=== PATIENT | female | born 1935 | race Caucasian/White ===

== ENCOUNTER 2021-09-16 05:02 | Inpatient (IN) | payer MEDICARE, BC ==
[~2021-09-16] VITALS: Ht 167.6 cm; Wt 83.0 kg
[2021-09-16] VITALS (65 sets, daily range): BP systolic 46–175; BP diastolic 26–96
--- NOTE | 2021-09-16 05:22 | NUR ---
Note ramoneone in EDM - 09/16/21 at 0557 by HUGO 0514; NO RESPIRATIONS, NO PULSES PALPATED. INITIATED CPR; DR. IRMA DO, RN, EMT AT PT'S BEDSIDE 0515 ADMINISTERED EPI IVP 0516 ADMINISRERED SODIUM BICARB IVP 0516 PULSE FELT; ROSC ACHIEVED. 0519 - ETOMIDATE 10MG IVP ADMINISTERED 0520 - ROCURONIUM 60MG IVP ADMINISTERED - PT SEDATED 0522 PT INTUBATED ETT 7.5CM 20 CM AT THE LIP
--- NOTE | 2021-09-16 05:22 | NUR ---
0514; NO RESPIRATIONS, NO PULSES PALPATED. INITIATED CPR; DR. IRMA DO, RN, EMT AT PT'S BEDSIDE 0515 ADMINISTERED EPI IVP 0516 ADMINISRERED CALCIUM CARBONATE IVP 0516 PULSE FELT; ROSC ACHIEVED. 0519 - ETOMIDATE 10MG IVP ADMINISTERED 0520 - ROCURONIUM 60MG IVP ADMINISTERED - PT SEDATED 0522 PT INTUBATED ETT 7.5CM 20 CM AT THE LIP
--- NOTE | 2021-09-16 05:24 | NUR ---
POC BS ACCUCHECK 384; DR. AVILA DO AWARE
[2021-09-16] MEDS ORDERED: ROCURONIUM BROMIDE 100 MG/10 ML VIAL IV ONE (05:30)
[2021-09-16] MEDS ORDERED: ETOMIDATE 2 MG/ML VIAL IV ONE ×2 (05:30→14:49)
--- NOTE | 2021-09-16 05:30 | NUR ---
F/C 16FR INSERTED WITH URINE. URINE AND COVID ANTIGEN COLLECTED AND SENT TO LAB.
--- NOTE | 2021-09-16 05:32 | NUR ---
R NARE NG TUBE PLACED @55CM. PLACEMENT CONFIRMED VIA AUSCULTATION & ASPIRATION
--- NOTE | 2021-09-16 05:33 | NUR ---
NG TUBE PLACED @55CM
--- NOTE | 2021-09-16 05:33 | NUR ---
TILE CONDUIT LAYER AT PT'S BEDSIDE
--- NOTE | 2021-09-16 05:34 | NUR ---
TEXTILES SALES REPRESENTATIVE AT PT'S BEDSIDE
--- NOTE | 2021-09-16 05:37 | NUR ---
RT & DR IRMA ZACARIAS ADVANCED ETT FROM 20 TO 22 CM AT THE LIP Addendum: 09/16/21 at 0558 by HUGO RT ADVANCED ETT FROM 20CM TO 23 CM [address] THE LIP. DR. IRMA ZACARIAS AWARE.
--- NOTE | 2021-09-16 05:48 | NUR ---
VENT SETTINGS: FIO2 100% VT 500 RR 24 I:E - 1:2 PEEP 5 PMAX 60
--- NOTE | 2021-09-16 05:49 | NUR ---
RT AT PT'S BEDSIDE FOR ABG
[2021-09-16 05:53] LABS: BASOPHILS % (AUTO) 0.2 % (0.0-2.0); EOSINOPHILS % (AUTO) 0.1 % (0.0-6.0); HEMATOCRIT 35 % (33-45); HEMOGLOBIN 11.1 g/dL (11.5-14.8); LYMPHOCYTES # (AUTO) 1.2 K/uL (0.8-4.8); LYMPHOCYTES % (AUTO) 25.3 % (20.0-44.0); MEAN CORPUSCULAR HGB CONC 32 g/dl (31.0-36.0); MEAN CORPUSCULAR VOLUME 93 fL (82-100); MONOCYTES % (AUTO) 0.4 % (2.0-12.0); NEUTROPHILS # (AUTO) 3.6 K/uL (1.8-8.9); PLATELET COUNT (AUTO) 171 K/uL (150-450); RED BLOOD CELL COUNT(AUTO) 3.79 MIL/uL (4.0-5.2); WHITE BLOOD COUNT (AUTO) 4.9 K/uL (4.3-11.0)
--- NOTE | 2021-09-16 05:58 | NUR ---
RT ADVANCED ETT FROM 20 CM TO [address]IP[address]. IRMA DELGADO.
[2021-09-16 06:07] LABS: CALCIUM, SERUM 9.5 mg/dL (8.5-10.1); CARBON DIOXIDE 13 mmol/L (21-32); CHLORIDE 99 mmol/L (98-107); CREATININE 3.7 mg/dL (0.6-1.3); POTASSIUM 4.3 mmol/L (3.5-5.1); SODIUM SERUM 137 mmol/L (136-145); UREA NITROGEN, BLOOD 45 mg/dL (7-18)
[2021-09-16 06:20] LABS: ALANINE AMINOTRANSFERASE 220 U/L (12-78); ALBUMIN 3.4 g/dL (3.4-5.0); ALKALINE PHOSPHATASE 102 U/L (46-116); ASPARTATE AMINOTRANSFERASE 275 U/L (15-37); BILIRUBIN,DIRECT 0.5 mg/dL (0.0-0.2); TOTAL PROTEIN, SERUM 7.1 g/dL (6.4-8.2)
[2021-09-16] MEDS ORDERED: CEFTRIAXONE 1GM BAG (ER ONLY) 50 ML IV ONE (06:26)
[2021-09-16] MEDS ORDERED: AZITHROMYCIN 500 MG VIAL ONE (06:26)
[2021-09-16] MEDS ORDERED: ATROPINE SULFATE INJ 1 MG/ML VIAL ONE (06:26)
[2021-09-16] MEDS ORDERED: INSULIN REGULAR, HUMAN 100 UNIT/ML 10 ML VIAL ONE (06:27)
[2021-09-16] MEDS ORDERED: SODIUM BICARBONATE SYR 50 MEQ/50 ML DISP.SYRIN ONE (06:27)
[2021-09-16] MEDS ORDERED: INSULIN REGULAR, HUMAN 100 UNITS in IV NS 0.9% 100 ML IV PRN ×2 (06:30)
[2021-09-16] MEDS ORDERED: CEFTRIAXONE 1GM BAG (ER ONLY) 1 GM/50 ML PIGGYBACK IV ONE (06:30)
[2021-09-16] MEDS ORDERED: INSULIN REGULAR, HUMAN 100 UNIT/ML 10 ML VIAL IV ONE (06:30)
[2021-09-16] MEDS ORDERED: AZITHROMYCIN 500 MG in IV D5W 250 ML IV ONE (06:30)
[2021-09-16] MEDS ORDERED: IV NS 0.9% 500 ML BAG IV ONE ×2 (06:30)
[2021-09-16] MEDS ORDERED: SODIUM BICARBONATE SYR 50 MEQ/50 ML DISP.SYRIN IV ONE ×3 (06:30→14:31)
[2021-09-16] MEDS ORDERED: ATROPINE SULFATE INJ 1 MG/ML VIAL IV ONE (06:30)
[2021-09-16 06:32] LABS: ABG BASE EXCESS -16.7 mmol/L; ABG PCO2 27.4 mmHg (35.0-45.0); ABG PH 7.184 (7.350-7.450); ABG PO2 52.5 mmHg (75.0-100.0); COHb 0.3 % (0.5-1.5); MetHb 0.4 % (0.0-1.5); O2Hb 76.2 % (94.0-97.0); SITE, ABG Right Brachial
[2021-09-16 06:56] LABS: GLUCOSE 443 mg/dL (74-106)
[2021-09-16] MEDS ORDERED: HEPARIN INFUSION/D5W 500 ML IV PRN (07:00)
[2021-09-16] MEDS ORDERED: NOREPINEPHRINE 8 MG in IV NS 0.9% 250 ML IV PRN (07:00)
[2021-09-16] MEDS ORDERED: PROPOFOL 100 ML IV PRN (07:00)
[2021-09-16] MEDS ORDERED: DEXTROSE 50%-WATER 50 ML DISP.SYRIN IV PRN (07:00)
[2021-09-16] MEDS ORDERED: IV NS 0.9% 1,000 ML IV PRN (07:00)
[2021-09-16] MEDS: BLOOD SUGAR DIAGNOSTIC 1 EACH STRIP IN SCH ×18 (07:00→23:59)
--- NOTE | 2021-09-16 07:12 | NUR ---
DR. YANI CALLAHAN AT PT'S BEDSIDE FOR PICCLINE INSERTION.
--- NOTE | 2021-09-16 07:23 | NUR ---
REPORT GIVEN TO BILL DIAMOND SIZER FOR [facility]
--- NOTE | 2021-09-16 07:26 | NUR ---
UPDATED MARIA E (DAUGHTER) [phone] REGARDING PT'S ADMISSION
[2021-09-16] MEDS ORDERED: DOPamine 400 MG/D5W 250 ML RTU BAG IV ONE (07:30)
[2021-09-16] MEDS ORDERED: FUROSEMIDE 40 MG/4 ML VIAL IV ONE (07:30)
--- NOTE | 2021-09-16 07:48 | NUR ---
TRANSFERRED TO BED 257 IN STABLE CONDITION
[2021-09-16] MEDS ORDERED: VANCOMYCIN 1.25 GM in IV D5W 250 ML IV ONE (08:00)
[2021-09-16] MEDS: Sodium Bicarbonate 100 MEQ in IV NS 0.9% 1,000 ML IV SCH ×2 (08:27→18:01)
[2021-09-16] MEDS ORDERED: EPINEPHRINE (1:1000) 5 MG in IV NS 0.9% 250 ML IV PRN (08:30)
--- NOTE | 2021-09-16 09:00 | NUR ---
UNDERGROUND MINE SUPERINTENDENT NOTE PATIENT FOUND WITHOUT A PULSE AT 0753 AFTER ER TRANSFER. NO PALPABLE PULSE AND NO RHYTHM SEEN ON MONITOR. PT WITH ETT TUBE IN PLACE AND FIO2 100%, UNABLE TO GET O2 SATURATION READING. CPR INITIATED 0757 EPINEPHRINE GIVEN 0758 SODIUM BICARB GIVEN 0801 EPINEPHRINE GIVEN 0802 ROCS, SINUS YOBANY 0805 DOPAMINE DRIP INITIATED.
[2021-09-16 09:05] LABS: BASOPHILS % (AUTO) 0.2 % (0.0-2.0); EOSINOPHILS % (AUTO) 0.1 % (0.0-6.0); HEMATOCRIT 33 % (33-45); HEMOGLOBIN 10.4 g/dL (11.5-14.8); LYMPHOCYTES # (AUTO) 2.4 K/uL (0.8-4.8); MEAN CORPUSCULAR HGB CONC 31 g/dl (31.0-36.0); MEAN CORPUSCULAR VOLUME 93 fL (82-100); MONOCYTES # (AUTO) 0.2 K/uL (0.1-1.30); MONOCYTES % (AUTO) 1.2 % (2.0-12.0); NEUTROPHILS # (AUTO) 14.7 K/uL (1.8-8.9); NEUTROPHILS % (AUTO) 84.5 % (43.0-81.0); PLATELET COUNT (AUTO) 146 K/uL (150-450); RED BLOOD CELL COUNT(AUTO) 3.59 MIL/uL (4.0-5.2); WHITE BLOOD COUNT (AUTO) 17.3 K/uL (4.3-11.0)
[2021-09-16 09:08] LABS: ABG BASE EXCESS -4.7 mmol/L; ABG OXYGEN SATURATION 88.7 % (92.0-98.5); ABG PCO2 42.6 mmHg (35.0-45.0); ABG PH 7.316 (7.350-7.450); ABG PO2 68.1 mmHg (75.0-100.0); AaDO2 602.3 mmHg; COHb 0.3 % (0.5-1.5); MetHb 0.2 % (0.0-1.5); O2Hb 88.3 % (94.0-97.0); PEEP,BG 8 cm H2O; SITE, ABG Right Brachial; VT, ABG 500 mL
--- NOTE | 2021-09-16 09:10 | NUR ---
CONSTRUCTION HELPER NOTE PT WITH ONGOING DOPAMINE DRIP, LOST OF PALPABLE PULSE AND RHYTHM ON MONITOR. CPR INITIATED AT 0811. ETT IN PLACE, FIO2 100%, UNABLE TO ASSESS OXYGEN SATURATION AT THIS TIME. 08 EPINEPHRINE GIVEN 813 EPINEPHRINE GIVEN 08 ROSC ACHIEVED, SR.
--- NOTE | 2021-09-16 09:15 | NUR ---
PHYSICIAN PRESIDENT NOTE PT FOUND WITHOUT PALPABLE PULSE, NO RHYTHM ON MONITOR. ETT IN PLACE FIO2 100%. CPR INITIATED AT 0831 BY RN. ONGOING DOPAMINE DRIP, ONGOING SODIUM BICARB DRIP. 0832 EPINEPHRINE GIVEN. 0835 SODIUM BICARB GIVEN 0838 ROSC, SINUS YOBANY.
[2021-09-16 09:24] LABS: CALCIUM, SERUM 8.4 mg/dL (8.5-10.1); CARBON DIOXIDE 16 mmol/L (21-32); CHLORIDE 102 mmol/L (98-107); CREATININE 4.1 mg/dL (0.6-1.3); POTASSIUM 3.2 mmol/L (3.5-5.1); SODIUM SERUM 145 mmol/L (136-145); UREA NITROGEN, BLOOD 46 mg/dL (7-18)
[2021-09-16 09:31] LABS: GLUCOSE 413 mg/dL (74-106)
[2021-09-16] MEDS: EPINEPHRINE (1:1000) 10 MG in IV NS 0.9% 240 ML IV PRN ×4 (09:40→22:46)
[2021-09-16] MEDS ORDERED: EPINEPHRINE (1:10,000) SYRINGE 1 MG/10 ML DISP.SYRIN IVP ONE ×2 (09:56→14:31)
[2021-09-16] MEDS: CEFEPIME 1 GM in IV D5W 50 ML IV SCH (10:07)
[2021-09-16] MEDS: PANTOPRAZOLE 40 MG VIAL IV SCH (10:07)
[2021-09-16] MEDS: INSULIN REGULAR, HUMAN 100 UNIT in IV NS 0.9% 99 ML IV PRN ×4 (11:48→20:20)
--- NOTE | 2021-09-16 12:00 | NUR ---
COMPUTER ENGINEERING TECHNOLOGIST NOTE NG TUBE ADVANCED TO 10CM PER RADIOLOGIST RECOMMENDATION. 65CC NOTED AT THE TIP OF THE NOSE.
[2021-09-16 13:24] LABS: ABG BASE EXCESS -13.3 mmol/L; ABG OXYGEN SATURATION 85.7 % (92.0-98.5); ABG PH 7.279 (7.350-7.450); ABG PO2 60.1 mmHg (75.0-100.0); AaDO2 626.9 mmHg; COHb 0.3 % (0.5-1.5); O2Hb 85.4 % (94.0-97.0); PEEP,BG 8 cm H2O; SITE, ABG Right Radial; VT, ABG 525 mL
[2021-09-16 14:07] LABS: CALCIUM, SERUM 7.8 mg/dL (8.5-10.1); CARBON DIOXIDE 18 mmol/L (21-32); CHLORIDE 103 mmol/L (98-107); CREATININE 4.3 mg/dL (0.6-1.3); SODIUM SERUM 145 mmol/L (136-145); UREA NITROGEN, BLOOD 48 mg/dL (7-18)
[2021-09-16 14:16] LABS: POTASSIUM 2.7 mmol/L (3.5-5.1)
[2021-09-16 14:17] LABS: GLUCOSE 363 mg/dL (74-106)
[2021-09-16] MEDS ORDERED: CALCIUM CHLORIDE 1,000 MG/10 ML DISP.SYRIN IV ONE (14:31)
[2021-09-16] MEDS ORDERED: ROCURONIUM BROMIDE 50 MG/5 ML IV ONE (14:49)
[2021-09-16] MEDS ORDERED: POTASSIUM CHLORIDE 20 MEQ POWDER PACKET GT SCH (15:00)
[2021-09-16] MEDS ORDERED: IV NS 0.9% 250 ML IV PRN (16:00)
--- NOTE | 2021-09-16 16:04 | NUR ---
RT Received pt in ER intubated ETT 7.5 22cm @ Lip. Vent changes made by MD prior to first vent check . Pt transferred to ICU (Code blue x4). No changes done post ABG. Pt now DNR- family at bedside. Will continue to monitor.
[2021-09-16 18:09] LABS: CHLORIDE 121 mmol/L (98-107); CREATININE 2.8 mg/dL (0.6-1.3); GLUCOSE 172 mg/dL (74-106); UREA NITROGEN, BLOOD 35 mg/dL (7-18)
[2021-09-16 18:12] LABS: CARBON DIOXIDE 40 mmol/L (21-32); POTASSIUM 2.2 mmol/L (3.5-5.1); SODIUM SERUM 169 mmol/L (136-145)
[2021-09-16 18:13] LABS: CALCIUM, SERUM 5.1 mg/dL (8.5-10.1)
[2021-09-16] MEDS: IV 1/2NS 1000 ML 1,000 ML IV PRN (18:41)
[2021-09-16] MEDS: POTASSIUM CL. PREMIX PERIPHER. 50 ML IV SCH ×5 (18:56→23:00)
[2021-09-17] VITALS (97 sets, daily range): BP systolic 66–146; BP diastolic 42–83
[2021-09-17] MEDS: POTASSIUM CL. PREMIX PERIPHER. 50 ML IV SCH
[2021-09-17 00:18] LABS: CALCIUM, SERUM 8.2 mg/dL (8.5-10.1); CARBON DIOXIDE 21 mmol/L (21-32); CHLORIDE 103 mmol/L (98-107); CREATININE 4.3 mg/dL (0.6-1.3); GLUCOSE 142 mg/dL (74-106); MAGNESIUM 1.8 mg/dL (1.8-2.4); PHOSPHORUS 3.1 mg/dL (2.5-4.9); POTASSIUM 4.2 mmol/L (3.5-5.1); SODIUM SERUM 144 mmol/L (136-145); UREA NITROGEN, BLOOD 53 mg/dL (7-18)
[2021-09-17] MEDS: BLOOD SUGAR DIAGNOSTIC 1 EACH STRIP IN SCH ×20 (01:04→23:10)
--- NOTE | 2021-09-17 04:21 | NUR ---
ICU/RN: PT NOTED WITH AXILLARY TEMP 102.[address] COOLING MEASURES INITIATED.
[2021-09-17 04:23] LABS: BASOPHILS % (AUTO) 0.2 % (0.0-2.0); EOSINOPHILS % (AUTO) 0.2 % (0.0-6.0); HEMATOCRIT 34 % (33-45); HEMOGLOBIN 11.1 g/dL (11.5-14.8); LYMPHOCYTES # (AUTO) 1.9 K/uL (0.8-4.8); MEAN CORPUSCULAR HGB CONC 33 g/dl (31.0-36.0); MEAN CORPUSCULAR VOLUME 86 fL (82-100); MONOCYTES # (AUTO) 1.7 K/uL (0.1-1.30); MONOCYTES % (AUTO) 8.1 % (2.0-12.0); NEUTROPHILS # (AUTO) 17.2 K/uL (1.8-8.9); NEUTROPHILS % (AUTO) 82.5 % (43.0-81.0); PLATELET COUNT (AUTO) 144 K/uL (150-450); RED BLOOD CELL COUNT(AUTO) 3.92 MIL/uL (4.0-5.2); WHITE BLOOD COUNT (AUTO) 20.9 K/uL (4.3-11.0)
[2021-09-17] MEDS: ACETAMINOPHEN 650 MG/20.3 ML UDC NG PRN (04:36)
[2021-09-17 04:42] LABS: ALANINE AMINOTRANSFERASE 547 U/L (12-78); ALBUMIN 2.6 g/dL (3.4-5.0); ALKALINE PHOSPHATASE 62 U/L (46-116); ASPARTATE AMINOTRANSFERASE 887 U/L (15-37); BILIRUBIN,TOTAL 0.7 mg/dL (0.2-1.0); CARBON DIOXIDE 23 mmol/L (21-32); CHLORIDE 104 mmol/L (98-107); CREATININE 4.3 mg/dL (0.6-1.3); GLUCOSE 118 mg/dL (74-106); MAGNESIUM 1.7 mg/dL (1.8-2.4); PHOSPHORUS 3.1 mg/dL (2.5-4.9); POTASSIUM 4.5 mmol/L (3.5-5.1); SODIUM SERUM 145 mmol/L (136-145); UREA NITROGEN, BLOOD 54 mg/dL (7-18)
--- NOTE | 2021-09-17 05:00 | NUR ---
ICU/RN: MERI PEGUERO ACNP ON THE FLOOR MAKING ROUNDS CRITICAL LABS RELAYED TO HER. LACTIC 12.35 NO NEW ORDERS.
--- NOTE | 2021-09-17 07:40 | NUR ---
ICU/RN PT IS INTUBATED ON THE VENT AC MODE,FIO2-80%,PEEP-8.NOT SEDATED ,COMATOSE.NO GAG ,NO CORNEAL AND NO COUGH REFLEXES.ON LEVOPHED,EPINEPHRINE AND INSULIN DRIPS.T-100.7.NG TUBE CLAMPED.F/C DRAINING WITH YELLOW URINE.LABS REVIEW. NOTIFIED.CONTINUE MONITORING.
[2021-09-17] MEDS: IV 1/2NS 1000 ML 1,000 ML IV PRN ×2 (08:04→21:42)
[2021-09-17] MEDS: CEFEPIME 1 GM in IV D5W 50 ML IV SCH (08:10)
[2021-09-17] MEDS: PANTOPRAZOLE 40 MG VIAL IV SCH (08:11)
[2021-09-17 08:17] LABS: ABG BASE EXCESS -3.1 mmol/L; ABG OXYGEN SATURATION 96.1 % (92.0-98.5); ABG PH 7.571 (7.350-7.450); ABG PO2 85.5 mmHg (75.0-100.0); AaDO2 177.9 mmHg; COHb 0.3 % (0.5-1.5); O2Hb 95.8 % (94.0-97.0); PEEP,BG 8 cm H2O; SITE, ABG Right Radial; VT, ABG 525 mL
[2021-09-17] MEDS: EPINEPHRINE (1:1000) 10 MG in IV NS 0.9% 240 ML IV PRN (08:34)
[2021-09-17 10:00] LABS: CALCIUM, SERUM 7.5 mg/dL (8.5-10.1); CARBON DIOXIDE 20 mmol/L (21-32); CHLORIDE 105 mmol/L (98-107); CREATININE 4.5 mg/dL (0.6-1.3); GLUCOSE 144 mg/dL (74-106); POTASSIUM 5.1 mmol/L (3.5-5.1); SODIUM SERUM 145 mmol/L (136-145); UREA NITROGEN, BLOOD 54 mg/dL (7-18)
[2021-09-17] MEDS ORDERED: NOREPINEPHRINE 8 MG in IV NS 0.9% 242 ML IV PRN (10:30)
--- NOTE | 2021-09-17 10:30 | NUR ---
ICU/RN DR XIAO SEEN THE PT.EEG ORDERED.
[2021-09-17] MEDS: NOREPINEPHRINE 8 MG in IV NS 0.9% 242 ML IV PRN ×2 (10:45→19:41)
[2021-09-17] MEDS ORDERED: FUROSEMIDE 100 MG/10 ML VIAL IV ONE (11:00)
[2021-09-17 18:15] LABS: CALCIUM, SERUM 7.6 mg/dL (8.5-10.1); CARBON DIOXIDE 26 mmol/L (21-32); CHLORIDE 107 mmol/L (98-107); CREATININE 4.4 mg/dL (0.6-1.3); GLUCOSE 126 mg/dL (74-106); POTASSIUM 5.7 mmol/L (3.5-5.1); SODIUM SERUM 142 mmol/L (136-145); UREA NITROGEN, BLOOD 55 mg/dL (7-18)
[2021-09-17] MEDS: INSULIN REGULAR, HUMAN 100 UNIT in IV NS 0.9% 99 ML IV PRN ×2 (20:06)
[2021-09-17 22:16] LABS: CALCIUM, SERUM 8.1 mg/dL (8.5-10.1); CARBON DIOXIDE 25 mmol/L (21-32); CHLORIDE 107 mmol/L (98-107); CREATININE 4.5 mg/dL (0.6-1.3); GLUCOSE 100 mg/dL (74-106); POTASSIUM 5.7 mmol/L (3.5-5.1); SODIUM SERUM 143 mmol/L (136-145); UREA NITROGEN, BLOOD 57 mg/dL (7-18)
[2021-09-18] VITALS (50 sets, daily range): BP systolic 56–150; BP diastolic 30–83
--- NOTE | 2021-09-18 | NUR ---
ICU/RN: PT NOTED WITH ELEVATED TEMP. COOLING MEASURE IMPLEMENTED. ICE PACKS IN PLACE.
[2021-09-18] MEDS: BLOOD SUGAR DIAGNOSTIC 1 EACH STRIP IN SCH ×8 (01:08→07:02)
[2021-09-18] MEDS: NOREPINEPHRINE 8 MG in IV NS 0.9% 242 ML IV PRN (01:10)
[2021-09-18 02:02] LABS: CALCIUM, SERUM 8.2 mg/dL (8.5-10.1); CARBON DIOXIDE 26 mmol/L (21-32); CHLORIDE 107 mmol/L (98-107); CREATININE 4.4 mg/dL (0.6-1.3); GLUCOSE 95 mg/dL (74-106); POTASSIUM 5.3 mmol/L (3.5-5.1); SODIUM SERUM 144 mmol/L (136-145); UREA NITROGEN, BLOOD 57 mg/dL (7-18)
[2021-09-18] MEDS: ACETAMINOPHEN 650 MG/20.3 ML UDC NG PRN (02:22)
[2021-09-18 05:21] LABS: CALCIUM, SERUM 7.7 mg/dL (8.5-10.1); CARBON DIOXIDE 28 mmol/L (21-32); CHLORIDE 108 mmol/L (98-107); CREATININE 4.5 mg/dL (0.6-1.3); GLUCOSE 108 mg/dL (74-106); POTASSIUM 5.1 mmol/L (3.5-5.1); SODIUM SERUM 145 mmol/L (136-145); UREA NITROGEN, BLOOD 56 mg/dL (7-18)
[2021-09-18] MEDS ORDERED: DEXTROSE 50%-WATER 50 ML DISP.SYRIN IV PRN (08:00)
[2021-09-18] MEDS ORDERED: INSULIN REGULAR, HUMAN 100 UNIT/ML 3 ML VIAL SQ PRN (08:00)
[2021-09-18] MEDS: CEFEPIME 1 GM in IV D5W 50 ML IV SCH (08:52)
[2021-09-18] MEDS: PANTOPRAZOLE 40 MG VIAL IV SCH (08:59)
[2021-09-18] MEDS ORDERED: VANCOMYCIN 1 GM in IV D5W 250 ML IV SCH (09:00)
[2021-09-18] MEDS ORDERED: NOREPINEPHRINE 8 MG in IV NS 0.9% 242 ML IV PRN (09:30)
[2021-09-18 09:39] LABS: CALCIUM, SERUM 7.6 mg/dL (8.5-10.1); CARBON DIOXIDE 25 mmol/L (21-32); CHLORIDE 110 mmol/L (98-107); CREATININE 4.2 mg/dL (0.6-1.3); GLUCOSE 128 mg/dL (74-106); POTASSIUM 4.9 mmol/L (3.5-5.1); SODIUM SERUM 147 mmol/L (136-145); UREA NITROGEN, BLOOD 56 mg/dL (7-18)
[2021-09-18] MEDS: IV 1/2NS 1000 ML 1,000 ML IV PRN (11:28)
[2021-09-18] MEDS ORDERED: BLOOD SUGAR DIAGNOSTIC 1 EACH STRIP IN SCH (12:00)
--- NOTE | 2021-09-18 12:33 | NUR ---
FAMILY ARRIVED AT BEDSIDE AT 1210, DR SANA ROB ARRIVED TO TERMINALLY EXTUBATE PATIENT. VENT AND DRIP/IV FLUIDS TURNED OFF AT 1220. FAMILY AT BEDSIDE AT THIS TIME.
== END 2021-09-18 13:50 | DRG 208 ==
LOC: ER 05:06 → ICU 07:11 → EDBD 07:11
PROVIDERS: ADMIT Nurse Practitioner Acute Care; ATTEND Nurse Practitioner Acute Care
PROC: 5A1945Z Respiratory Ventilation, 24-96 Consecutive Hours (ICD-10-PCS; principal; 2021-09-16)
PROC: 0BH17EZ Insertion of Endotracheal Airway into Trachea, Via Natural or Artificial Opening (ICD-10-PCS; 2021-09-16)
PROC: B54NZZA Ultrasonography of Left Upper Extremity Veins, Guidance (ICD-10-PCS; 2021-09-16)
PROC: 05H433Z Insertion of Infusion Device into Left Innominate Vein, Percutaneous Approach (ICD-10-PCS; 2021-09-16)
PROC: 5A12012 Performance of Cardiac Output, Single, Manual (ICD-10-PCS; 2021-09-16)
PROC: 5A12012 Performance of Cardiac Output, Single, Manual (ICD-10-PCS; 2021-09-16)
PROC: 4A00X4Z Measurement of Central Nervous Electrical Activity, External Approach (ICD-10-PCS; 2021-09-17)
DX: J96.01 Acute respiratory failure with hypoxia (principal); I21.9 Acute myocardial infarction, unspecified; I50.43 Acute on chronic combined systolic (congestive) and diastolic (congestive) heart failure; N17.0 Acute kidney failure with tubular necrosis; E87.2 Acidosis; G93.1 Anoxic brain damage, not elsewhere classified; R78.81 Bacteremia; E11.65 Type 2 diabetes mellitus with hyperglycemia; I10 Essential (primary) hypertension; B96.89 Other specified bacterial agents as the cause of diseases classified elsewhere; D63.8 Anemia in other chronic diseases classified elsewhere; I25.10 Atherosclerotic heart disease of native coronary artery without angina pectoris; I11.0 Hypertensive heart disease with heart failure; I25.5 Ischemic cardiomyopathy; I35.0 Nonrheumatic aortic (valve) stenosis; Z66 Do not resuscitate; Z95.5 Presence of coronary angioplasty implant and graft; R57.0 Cardiogenic shock; E66.9 Obesity, unspecified; G47.30 Sleep apnea, unspecified
CPT/HCPCS: 31720; 36415; 36600; 71045-TC; 80048-TC; 80053-TC; 80076-TC; 80202-TC; 82803-TC; 82962-TC; 83605-TC; 83735-TC; 83880; 84100-TC; 84484-TC; 85025-TC; 85378-TC; 85730-TC; 87040-TC; 87081-TC; 87186-TC; 92950-TC; 93307-TC; 94002-TC; 94003-TC; 94760-TC; 94799-TC; 95819-TC; C9113; C9803; G0378; J0171; J0456; J0461; J0692; J0696; J1265; J1644; J1815; J1940; J3370; J3480; J3490; J7030; J7040; J7050; J7060